=== PATIENT | male | born 1955 | race Caucasian/White ===

== ENCOUNTER 2018-09-08 11:08 | Inpatient (IN) | payer SELFPAY ==
[~2018-09-08 11:08] MED LIST: Iopamidol 370 76% 100 ML VIAL ONE
[2018-09-08 11:21] LABS: #Eosinphils 0.1 thou/uL (0.0-0.7); #Lymphocytes 1.7 thou/uL (1.20-3.40); #Monocytes 0.6 thou/uL (0.11-0.59); #Neutrophils 8.9 thou/uL (1.40-6.50); %Basophils 0.3 % (0.0-1.0); %Eosinophils 1.1 % (0.0-10.0); %Lymphocytes 15.2 % (21.0-51.0); %Monocytes 4.8 % (0.0-10.0); %Neutrophils 78.5 % (42.0-75.0); Mean Corpuscular HGB CONC 33.4 g/dL (32.0-36.0); Mean Corpuscular Hemoglobin 33.7 pg (27.0-31.0); Mean Platelet Volume 8.6 fL (7.4-10.4); Platelet Count 256 thou/uL (130-400); RBC Distribution Width 11.9 % (11.5-14.5); Red Blood Cell (RBC) Count 4.74 mill/uL (4.70-6.10); White Blood Cell (WBC) Count 11.3 thou/uL (4.8-10.8)
[2018-09-08 11:30] LABS: Prothrombin Time 13.2 SEC (12.0-14.7)
--- NOTE | 2018-09-08 11:34 | RAD ---
CHEST 1 VIEW: Date: 09/08/18 HISTORY: STEMI, right-sided. FINDINGS: Costophrenic angles are not completely included on this study; however, the patient was headed to the medical laboratory technicians as an emergency and exam was not repeated. Surgical clips in the left axilla. Heart size is upper range of normal. No confluent pneumonia, overt edema, or pleural effusion. IMPRESSION: Upper range of normal size heart. No significant acute intrathoracic disease. Surgical clips left axi lla. POS: [facility]
[2018-09-08 11:39] LABS: ALT (SGPT) 28 U/L (8-55); AST (SGOT) 17 U/L (5-34); Albumin 4.4 g/dL (3.4-4.8); Alkaline Phosphatase 75 U/L (40-150); Anion Gap 16 mmol/L (10-20); BUN (Urea Nitrogen) 14 mg/dL (8.4-25.7); Bilirubin, Total 0.3 mg/dL (0.2-1.2); Calc. Creatinine Clearance 0 mL/min (70-130); Calcium 10.2 mg/dL (7.8-10.44); Carbon Dioxide 19 mmol/L (23-31); Chloride 109 mmol/L (98-107); Estimated GFR-MDRD 53; Glucose 133 mg/dL (80-115); Potassium 4.6 mmol/L (3.5-5.1); Protein, Total 7.4 g/dL (5.8-8.1); Sodium 139 mmol/L (136-145)
[2018-09-08 11:46] LABS: Cardiac Risk 5.1 (Less than 4.5)
[2018-09-08 11:47] LABS: PTT 169.2 SEC (22.9-36.1)
[2018-09-08] MEDS ORDERED: Morphine 2 MG/ML SYRINGE SLOW IVP PRN (12:33)
[2018-09-08] MEDS ORDERED: Nitroglycerin 0.4 MG TAB (25 Tab Bottle) SL PRN (12:33)
[2018-09-08] MEDS ORDERED: Mag-Al 1200 mg/1200 mg/30 ML UDCUP PO PRN (12:34)
[2018-09-08] MEDS ORDERED: Milk Of Magnesia 30 ML UDCUP PO PRN (12:34)
[2018-09-08] MEDS ORDERED: ALPRAZolam 0.25 MG TAB PO PRN (12:44)
[2018-09-08] MEDS ORDERED: Sodium Chloride 0.9% 1,000 ML IV SCH (12:45)
[2018-09-08] MEDS ORDERED: Aggrastat 12.5 MG/250 ML 250 ML IVPB SCH (12:45)
[2018-09-08 12:50] LABS: CKMB 3.6 ng/mL (0-6.6)
[2018-09-08 13:05] LABS: Hemoglobin A1c 5.2 % (4.0-6.0)
--- NOTE | 2018-09-08 13:18 | CCL ---
CARDIAC CATHETERIZATION REPORT: Date: 09/08/18 PROCEDURE: Coronary arteriography, drug-eluting stent placement in the mid LAD. DESCRIPTION OF PROCEDURE: The patient was brought to the cardiac dye lab technician and the right groin was prepped and draped in the usu al manner. A 6 [place] sheath was placed into the right femoral artery. ACTs were checked and heparin bolus was given to ultimately achieve an ACT of 313. A 6 [place] Elder left-4 diagnostic catheter followed by a 6 [place] Elder right-4 guide catheter w ere used for coronary arteriography. A floppy Choice wire was advanced into the distal right coronary artery. The area was predilated with Emerge 3.0 x 15 mm balloon. Synergy 4.0 x 38 followed by 4.0 x 12 mm stents were placed in the mid right coronary artery. There was RAAD 1-2 flow and Adenosine 200 mg twice was given with improvement to RAAD 3 flow. Patient was hypotensive at the end of the case wi th pressures in the 60s-70s systolic. Patient was given 250 mL of saline bolus followed by Dopamine 5 mcg/kg/minute, which was then increased to 10, and was gradually tapered at the end of the case. She ath was sutured in place. The patient also was placed on Aggrastat, which was continued at the conclu delio of the case. RESULTS: CORONARY ARTERIOGRAPHY: 1. The left main was normal. 2. The LAD had a 20% first diagonal stenosis. 3. The circumflex was normal. 4. The ramus was large with a 70% stenosis. 5. The right coronary artery was totally occluded in its mid portion. The distal vessel filled retro grade from the left. INTERVENTION RESULTS: Initial mid right coronary artery stenosis was 100% and final lesion was 0%. IMPRESSION: 1. Two vessel coronary artery disease (circumflex and RCA). 2. Successful drug-eluting stent placement in the mid right coronary artery.
[2018-09-08 14:15] VITALS: BMI 34.2
--- NOTE | 2018-09-08 18:32 | HP ---
HISTORY OF PRESENT ILLNESS: Timmy Hollingsworth is a 62-year-old white male, who receives most of his care at the [facility]. He denies any previous cardiac problems. He does, at times, have chest pain which he describes as an indigestion. This morning at 7 a.m., he had onset of central chest tightness, associated with shortness of breath, diaphoresis, and nausea. This lasted until he was transferred here, I saw him in the emergency room at 11:15 am. He called the Paramedics to where he lives in [place]. They then called another helicopter service, which then brought him to [place] by air. He states that his pain continues at this time. PAST MEDICAL HISTORY: Hypertension and bipolar disorder. He denies any history of diabetes or hypercholesterolemia. MEDICATIONS: Blood pressure and some type of psychiatric medications. ALLERGIES: NONE. OPERATIONS: Tonsillectomy, back surgery, hernia surgery, right ankle surgery. He also had removal of melanoma from his chest and from the lymph node. He has history of lung cancer, treated with chemotherapy, but he states that he is in remission. SOCIAL HISTORY: He continues to smoke 2 packs per day. He does not drink. FAMILY HISTORY: Mother has had coronary stents placed. REVIEW OF SYSTEMS: A 10-point review of systems is otherwise unremarkable. PHYSICAL EXAMINATION: VITAL SIGNS: Blood pressure 128/72, pulse of 90. HEENT: PERRL. NECK: Supple. CHEST: Clear. CARDIAC: S1 and S2 normal without any S3, S4, or murmurs. ABDOMEN: Obese. Normal bowel sounds. No tenderness or organomegaly. EXTREMITIES: Revealed trace pretibial edema. NEUROLOGIC: Grossly intact. SKIN: Warm and dry. LABORATORY DATA: EKG revealed a 2-mm ST-segment elevation in lead F, 3 mm in lead II, and 4 mm in lead III. Blood work that has now returned, hemoglobin 16.0, hematocrit 47.9, white count 11,300, and platelets 256,000. Sodium 139, potassium 4.6, chloride 109, carbon dioxide 19, BUN 14, creatinine 1.37, and glucose 133. Troponin I 0.073. Cholesterol 169, triglycerides 121, HDL 33, and LDL 112. IMPRESSION: 1. Inferior ST-elevation myocardial infarction. 2. Hypertension. 3. Smoker. 4. Positive family history. 5. Bipolar disorder. 6. Obesity. PLAN: It is recommended that the patient undergo cardiac catheterization. Risks of this were discussed with the patient including , myocardial infarction, dye reaction, vascular injury, CVA, transfusion, limb loss, renal loss, etc. Also, risks of intervention with stent placement were discussed including , myocardial infarction, emergent CABG, restenosis, stent thrombosis, vessel perforation, etc. He does not have any history of gastrointestinal bleeding and has never had a stroke. He is not having surgeries in the near future, and therefore, a drug-eluting stent will be placed. We discussed the need to take medicines for at least a year. With his obesity and voice, TSH will be obtained. Also hemoglobin A1c will be obtained. He will be started on atorvastatin. Job ID: [id number] [facility]TDD
[2018-09-08] MEDS: Atorvastatin Calcium 40 MG TAB PO SCH (20:14)
[2018-09-08 21:03] LABS: Troponin I 61.817 ng/mL (< 0.028)
[2018-09-09 05:38] LABS: #Eosinphils 0.1 thou/uL (0.0-0.7); #Lymphocytes 2.2 thou/uL (1.20-3.40); #Monocytes 0.8 thou/uL (0.11-0.59); #Neutrophils 9.5 thou/uL (1.40-6.50); %Basophils 0.4 % (0.0-1.0); %Eosinophils 0.7 % (0.0-10.0); %Lymphocytes 17.4 % (21.0-51.0); %Monocytes 6.5 % (0.0-10.0); %Neutrophils 75.1 % (42.0-75.0); Hemoglobin 14.8 g/dL (14.0-18.0); Mean Corpuscular HGB CONC 32.6 g/dL (32.0-36.0); Mean Corpuscular Hemoglobin 33.1 pg (27.0-31.0); Mean Platelet Volume 8.7 fL (7.4-10.4); Platelet Count 246 thou/uL (130-400); RBC Distribution Width 11.9 % (11.5-14.5); Red Blood Cell (RBC) Count 4.47 mill/uL (4.70-6.10); White Blood Cell (WBC) Count 12.6 thou/uL (4.8-10.8)
[2018-09-09 05:47] LABS: ALT (SGPT) 37 U/L (8-55); AST (SGOT) 129 U/L (5-34); Albumin 4.1 g/dL (3.4-4.8); Alkaline Phosphatase 66 U/L (40-150); Anion Gap 12 mmol/L (10-20); BUN (Urea Nitrogen) 13 mg/dL (8.4-25.7); Bilirubin, Total 0.5 mg/dL (0.2-1.2); Calc. Creatinine Clearance 100 mL/min (70-130); Calcium 9.7 mg/dL (7.8-10.44); Carbon Dioxide 24 mmol/L (23-31); Chloride 108 mmol/L (98-107); Estimated GFR-MDRD 60; Globulin 2.9 g/dL (2.4-3.5); Glucose 104 mg/dL (80-115); Potassium 4.3 mmol/L (3.5-5.1); Sodium 140 mmol/L (136-145)
[2018-09-09 06:03] LABS: Free T4 (Free Thyroxine) 0.89 ng/dL (0.70-1.48); T4 5.5 ug/dL (4.87-11.72)
[2018-09-09] MEDS: Aspirin Chewable 81 MG TAB PO SCH (08:12)
[2018-09-09] MEDS: Clopidogrel Bisulfate 75 MG TAB PO SCH (08:12)
[2018-09-09 15:17] LABS: Troponin I 20.009 ng/mL (< 0.028)
[2018-09-09] MEDS: Carvedilol 3.125 MG TAB PO SCH (16:47)
[2018-09-09] MEDS: Atorvastatin Calcium 40 MG TAB PO SCH (21:22)
[2018-09-10] MEDS: Clopidogrel Bisulfate 75 MG TAB PO SCH (10:01)
[2018-09-10] MEDS: Carvedilol 3.125 MG TAB PO SCH (10:02)
[2018-09-10] MEDS: Aspirin Chewable 81 MG TAB PO SCH (10:03)
[2018-09-10] MEDS ORDERED: Carvedilol 3.125 MG TAB PO SCH (14:00)
[2018-09-10] MEDS: Carvedilol 6.25 MG TAB PO SCH (17:11)
[2018-09-10] MEDS: Lisinopril 2.5 MG TAB PO SCH (20:42)
[2018-09-10] MEDS: Atorvastatin Calcium 40 MG TAB PO SCH (20:42)
[2018-09-10] MEDS: Mirtazapine 15 MG TAB PO SCH (20:43)
--- NOTE | 2018-09-10 21:16 | EKG ---
Test Reason : Blood Pressure : / mmHG Vent. Rate : 100 BPM Atrial Rate : 100 BPM P-R Int : 174 ms QRS Dur : 094 ms QT Int : 330 ms P-R-T Axes : 070 -04 095 degrees QTc Int : 425 ms Normal sinus rhythm Minimal voltage criteria for LVH, may be normal variant Inferior infarct , age undetermined Abnormal ECG No previous ECGs available Confirmed by Lewis MAHAJAN ([id number]) on 09/10/2018 9:16:21 PM Referred By: KENYATTA Confirmed By:Lewis MAHAJAN
--- NOTE | 2018-09-10 21:25 | EKG ---
Test Reason : Blood Pressure : / mmHG Vent. Rate : 077 BPM Atrial Rate : 077 BPM P-R Int : 172 ms QRS Dur : 094 ms QT Int : 398 ms P-R-T Axes : 073 -33 -46 degrees QTc Int : 450 ms Normal sinus rhythm Left axis deviation Inferior infarct (cited on or before 08-SEP-2018) Abnormal ECG When compared with ECG of 08-SEP-2018 12:46, (Unconfirmed) T wave inversion now evident in Inferior leads Confirmed by Lewis MAHAJAN ([id number]) on 09/10/2018 9:25:05 PM Referred By: KENYTATA Confirmed By:Lewis MAHAJAN
[2018-09-11] MEDS: Ipratropium Bromide 2.5 ml Neb NEB SCH (07:11)
[2018-09-11] MEDS: Clopidogrel Bisulfate 75 MG TAB PO SCH (09:31)
[2018-09-11] MEDS: Carvedilol 6.25 MG TAB PO SCH ×2 (09:31→16:30)
[2018-09-11] MEDS: Aspirin Chewable 81 MG TAB PO SCH (09:31)
[2018-09-11] MEDS: PARoxetine 20 MG TAB PO SCH (09:32)
[2018-09-11] MEDS: Lisinopril 2.5 MG TAB PO SCH ×2 (09:32→20:20)
--- NOTE | 2018-09-11 11:24 | PDOC.CTH ---
Cardiology Progress Note - Objective Vital Signs Temp Pulse Resp BP BP Pulse Ox 09/11/18 09:32 82 146/93 H 09/11/18 09:31 146/93 H 09/11/18 07:43 96 09/11/18 07:20 92 L 09/11/18 07:08 97 16 92 L 09/11/18 04:00 97.6 F 112 H 24 H 173/95 H 95 09/11/18 00:00 97.2 F L 84 15 130/70 96 09/10/18 23:35 90 L Weight 245 lb 09/10/18 09/11/18 09/12/18 06:59 06:59 06:59 Intake Total 1860 2347 240 Output Total 1050 2275 Balance 810 72 240 - Physical Examination General/Neuro: alert & oriented x3, NAD Neck: carotid US brisk, no JVD present Lungs: CTA, unlabored respirations Heart: PMI normal, RRR Abdomen: NT/ND, soft Extremities: + femoral B - Labs Result Diagrams: 09/09/18 04:49 09/09/18 04:49 Troponin/CKMB CK-MB (CK-2) 3.6 ng/mL (0-6.6) 09/08/18 11:13 Troponin I 20.009 ng/mL (< 0.028) H* 09/09/18 14:40 - Assessment/Plan AMI s/p stent Pt doing well On plavix, ASA, BB and statin Pt with low TSH. Check thyroid profile Home tomorrow
[2018-09-11 12:16] LABS: Free Thyroxine Index 2.56 (1.4-3.1); T4 8.9 ug/dL (4.87-11.72)
[2018-09-11] MEDS: Atorvastatin Calcium 40 MG TAB PO SCH (20:20)
[2018-09-11] MEDS: Mirtazapine 15 MG TAB PO SCH (20:20)
[2018-09-12] MEDS: Ipratropium Bromide 2.5 ml Neb NEB SCH (06:24)
[2018-09-12 08:07] VITALS: BP 139/86; TEMP 97.9
[2018-09-12] MEDS: PARoxetine 20 MG TAB PO SCH (08:51)
[2018-09-12] MEDS: Clopidogrel Bisulfate 75 MG TAB PO SCH (08:51)
[2018-09-12] MEDS: Aspirin Chewable 81 MG TAB PO SCH (08:52)
[2018-09-12] MEDS: Carvedilol 6.25 MG TAB PO SCH (08:52)
[2018-09-12] MEDS: Lisinopril 2.5 MG TAB PO SCH (08:52)
== END 2018-09-12 11:10 | disposition home or self-care (01) | DRG 247 ==
LOC: ERS 11:08 → CCU 11:30 → 2SE 09-09 15:49
PROVIDERS: ADMIT Internal Medicine Cardiovascular Disease; ATTEND Internal Medicine Cardiovascular Disease
PROC: 027034Z Dilation of Coronary Artery, One Artery with Drug-eluting Intraluminal Device, Percutaneous Approach (ICD-10-PCS; principal; 2018-09-08)
PROC: 4A023N7 Measurement of Cardiac Sampling and Pressure, Left Heart, Percutaneous Approach (ICD-10-PCS; 2018-09-08)
PROC: B2111ZZ Fluoroscopy of Multiple Coronary Arteries using Low Osmolar Contrast (ICD-10-PCS; 2018-09-08)
DX: I21.4 Non-ST elevation (NSTEMI) myocardial infarction (principal); I25.10 Atherosclerotic heart disease of native coronary artery without angina pectoris; I10 Essential (primary) hypertension; F31.9 Bipolar disorder, unspecified; F17.210 Nicotine dependence, cigarettes, uncomplicated; Z79.899 Other long term (current) drug therapy; Z68.34 Body mass index [BMI] 34.0-34.9, adult
CPT/HCPCS: 36415; 71045; 80053; 80061; 82553; 83036; 84436; 84439; 84443; 84479; 84481; 84484; 85025; 85347; 85610; 85730; 90471; 90732; 92941; 92977; 93005; 93010; 93306; 93798; 94640; C1725; C1769; C1874; C1887; C9606; G0009; J7620; Q9967

== ENCOUNTER 2018-09-22 05:07 | Observation (INO) | payer MEDICARE, OTHER, SELFPAY ==
[2018-09-22] MEDS ORDERED: hydrALAZINE 20 MG/ML VIAL ONE (05:20)
[2018-09-22 06:22] LABS: CKMB 3.1 ng/mL (0-6.6)
--- NOTE | 2018-09-22 07:48 | CT ---
PRELIMINARY REPORT/[facility]/EMERGENCY AFTER HOURS PROCEDURE EXAM: CT Angiography Chest With Contrast EXAM DATE/TIME: 09/22/2018 5:47 AM CLINICAL HISTORY: 62 years old, male; Angina; Patient HX: 62 y/o m, S/P stemi and cardiac stent placement x 10 days ago , presents to ED via transport from [facility] ED for cp. PT describes onset as 1400 x 1 day ago. PT was prompted to call 911 with onset of diaphoresis. He also notes x 1 day of cough. TECHNIQUE: Imaging protocol: Axial computed tomographic angiography images of the chest with intravenous contras t using CT angiography protocol. Coronal and sagittal reformatted images were created and reviewed. 3D rendering: MIP reconstructed images were created and reviewed. COMPARISON: No relevant prior studies available. FINDINGS: Pulmonary arteries: No pulmonary emboli. Aorta: Atherosclerotic changes of the thoracic aorta and branches without aneurysm. Lungs: Emphysematous changes. There are a few nonspecific subcentimeter pulmonary nodules, for exampl e 4 mm in the right upper lung (series 3, image 44). Peripherally calcified 1.9 cm round nodule in th e right lung base. Mild subsegmental bibasilar atelectasis. Pleural space: No pneumothorax or pleural effusion. Heart: The heart is within normal size limits. No abnormal pericardial effusion. Lymph nodes: No mediastinal lymphadenopathy. Bones/joints: No suspicious bone lesions or fracture. Soft tissues: Absence of the left pectoralis muscle. Surgical clips in the left axilla. Nonspecific l eft axillary/left chest approximately 1 cm subcutaneous nodules/lymph nodes. IMPRESSION: 1. No evidence of a pulmonary embolism. 2. Defer to on-site radiologist for followup of pulmonary nodules. Thank you for allowing us to participate in the care of your patient. Dictated and Authenticated by: Yoselin Taylor MD 09/22/2018 6:25 AM Central Time ([place] & [place]) FINAL REPORT CT ANGIOGRAM CHEST WITH 3D RENDERING: EMERGENT AFTER HOURS EXAM 09/22/2018 5:49 a.m. FINDINGS: No convincing CT evidence for acute pulmonary embolism. Bilateral chronic lung changes. Pulmonary n odule measuring 1.9 cm in the right lung base with partially calcified rim with smaller nodules, up t o 0.4 cm. Absent left pectoris muscle. Small left-sided subcutaneous nodules, nonspecific, possibly lymph nodes. Fatty changes in the liver. Somewhat prominent nodular adrenal glands bilaterally, no nspecific. Consider follow-up PET scan with regard to the pulmonary nodule in the right lower lobe. This report is in agreement with the preliminary report. CODE LN POS: OFF
[2018-09-22] MEDS ORDERED: Acetaminophen 325 MG TAB PO PRN (07:52)
[2018-09-22] MEDS ORDERED: Nitroglycerin 0.4 MG TAB (25 Tab Bottle) PO PRN (07:52)
[2018-09-22] MEDS ORDERED: Albuterol Sulfate 1.25 MG/3 ML NEB NEB PRN (07:54)
[2018-09-22] MEDS ORDERED: hydrALAZINE 20 MG/ML VIAL SLOW IVP PRN (08:09)
[2018-09-22 08:38] LABS: #Eosinphils 0.1 thou/uL (0.0-0.7); #Lymphocytes 1.5 thou/uL (1.20-3.40); #Monocytes 0.3 thou/uL (0.11-0.59); #Neutrophils 11.2 thou/uL (1.40-6.50); %Basophils 0.1 % (0.0-1.0); %Eosinophils 0.8 % (0.0-10.0); %Lymphocytes 11.3 % (21.0-51.0); %Monocytes 2.5 % (0.0-10.0); %Neutrophils 85.3 % (42.0-75.0); Hemoglobin 14.5 g/dL (14.0-18.0); Mean Corpuscular HGB CONC 33.1 g/dL (32.0-36.0); Mean Corpuscular Volume 99.7 fL (78.0-98.0); Platelet Count 277 thou/uL (130-400); Red Blood Cell (RBC) Count 4.39 mill/uL (4.70-6.10); White Blood Cell (WBC) Count 13.1 thou/uL (4.8-10.8)
[2018-09-22 08:56] LABS: Anion Gap 13 mmol/L (10-20); BUN (Urea Nitrogen) 15 mg/dL (8.4-25.7); Calc. Creatinine Clearance 0 mL/min (70-130); Calcium 9.7 mg/dL (7.8-10.44); Carbon Dioxide 23 mmol/L (23-31); Chloride 107 mmol/L (98-107); Estimated GFR-MDRD 56; Glucose 142 mg/dL (80-115); Sodium 139 mmol/L (136-145)
--- NOTE | 2018-09-22 08:57 | HP ---
PRIMARY CARE PROVIDER: MAY. CHIEF COMPLAINT: Chest pressure. HISTORY OF PRESENT ILLNESS: This is a 62-year-old male with recent STEMI and stent placement on 09/08/2018 and discharged from this hospital, history of lung cancer in remission, dyslipidemia, hypertension, bipolar disorder, who presents to the emergency room in [place] with a complaint of chest pressure. The patient reports around 02:00 p.m. yesterday the onset of pressure that he describes at the center of his chest with associated shortness of breath. He reports that it happened soon after smoking a cigarette. He denies any precipitating factors, states it was worse with walking around, denies any relieving factors, and states it was worse with laying down. He denies any radiation, nausea, or vomiting, and reports that this is different than when he had his STEMI. He rates the pressure as a 3 or 4/10 and states it lasted several hours. It has since resolved since his transfer to this facility. Yesterday, he reports his [id number] checked his blood pressure at home, states that it was high. He does not specifically know the numbers, states he has been taking all of his medication, and reports he has not missed any doses of his aspirin and Plavix. He denies any symptoms at this time, only complains of fatigue currently, and he has been in our emergency room overnight. In the emergency room here, the patient received hydralazine 10 mg IV, the highest blood pressure recorded is 193/130. In [facility], he received aspirin 324 mg, 1-inch of nitroglycerin paste, labetalol 10 mg IV, and transferred to this facility. PAST MEDICAL HISTORY: 1. Coronary artery disease with stent placement on 09/08/2018 at this facility. 2. Hypertension. 3. Dyslipidemia. 4. Bipolar disorder. 5. History of lung cancer, status post chemotherapy. PAST SURGICAL HISTORY: 1. Tonsillectomy. 2. Back surgery. 3. Hernia surgery. 4. Right ankle surgery. 5. Melanoma removal. 6. Cardiac stent placement. SOCIAL HISTORY: The patient lives alone in [place], continues to use tobacco, denies any alcohol. His surrogate decision maker is his [id number], [place], and he is a full code. FAMILY HISTORY: Significant for a mother who had coronary stents. REVIEW OF SYSTEMS: Negative for any vision changes, headache, current chest pain, nausea, vomiting, or abdominal pain, urinary changes. All remaining review of systems are reviewed and negative. CURRENT MEDICATIONS: The patient reports there have been no changes since his last discharge from this facility and they are, 1. Aspirin 81 mg daily. 2. Atorvastatin 40 mg at bedtime. 3. Carvedilol 6.25 mg b.i.d. 4. Plavix 75 mg daily. 5. Lisinopril 2.5 mg b.i.d. 6. Paxil 40 mg daily. 7. Mirtazapine 45 mg at bedtime. 8. [place] 300 mg tablets twice daily. 9. Spiriva 2.5 mcg daily. 10. Albuterol inhaler and nebulizer every 4 hours as needed. PHYSICAL EXAMINATION: VITAL SIGNS: His blood pressure here 139/88, pulse 82, respirations 19, temperature 98.4, sats 96% on 2 L oxygen. GENERAL: The patient is awake, alert, responsive, in no apparent distress. Able to speak in full sentences. HEENT: His tympanic membranes are translucent. Oral mucosa is pink and dry. NECK: Supple and nontender. LYMPHATICS: No palpable cervical or supraclavicular lymphadenopathy. LUNGS: Clear to auscultation bilaterally with good air movement. HEART: Normal S1, S2. Regular rate and rhythm. No audible murmurs. ABDOMEN: Soft with present bowel sounds. Nontender. Nondistended. EXTREMITIES: No clubbing, cyanosis, or edema. SKIN: The patient has multiple areas of crusting on his lower extremities that he reports is consistent with minor trauma. VASCULAR: 2+ dorsalis pedis pulses. NEURO: No focal deficits. PSYCH: Appears euthymic. Alert and oriented x4. LABORATORY DATA: Reviewed from [place], his BNP is 469. Renal panel 142, 4.0, 109, 20, 17, 1.25 with a glucose of 109. LFTs are normal. Lipase is 66. Troponin 0.03. CBC 14.1, 14.1, 42, 296. Chest x-ray report in [place] is negative. EKG here personally reviewed, sinus rhythm, left axis deviation, abnormal R-wave progression with an inferior infarct consistent with his STEMI here two weeks ago. CT angiogram performed here shows no evidence for acute PE, bilateral chronic lung changes with a pulmonary nodule 1.9 cm in the right lung base with a calcified rim and smaller nodules, fatty changes in the liver. Consider followup PET scan. Troponin here 0.046. IMPRESSION: 1. Unstable angina in a patient with recent stent placement, hypertension, ongoing tobacco abuse. 2. Hypertension, uncontrolled. 3. Likely Chronic kidney disease based on chart review. 4. Pulmonary nodule, measuring 1.9 cm. Needs follow up in the outpatient setting. 5. Dyslipidemia. 6. History of lung cancer. 7. Bipolar disorder, unknown control. 8. Tobacco abuse. PLAN: 1. Observation status in the hospital. 2. Echocardiogram and Cardiology consultation. 3. We will trend troponins. 4. Continuing all of his cardiac medications from his last discharge, which include a beta rosa, statin, dual anti-platelet therapy, and RAUL inhibitor. We will use hydralazine as needed. 5. Continuing his home mood medications - will use the lithium dosing from his last inpatient visit of 300 mg BID, monitor renal function. 6. P.r.n. albuterol and schedule daily Spiriva. 7. Will need outpatient followup on the lung nodule. 8. Monitoring on telemetry. 9. The patient does not have overt signs of pulmonary edema on physical exam, no clear indication for Lasix even with the elevated BNP. We will monitor this. 10. DVT prophylaxis with pneumatic compression devices. 11. GI prophylaxis, not indicated. 12. Code status is full. Surrogate decision maker is above. 13. The patient is at high risk given age, comorbidities, and current presentation. 14. Reviewed the plan of care with the patient, who demonstrates understanding. No questions or further needs at end of evaluation. Job ID: [id number] [facility]
[2018-09-22 09:00] LABS: Troponin I 0.035 ng/mL (< 0.028)
[2018-09-22] MEDS ORDERED: Lisinopril 2.5 MG TAB PO SCH (09:00)
[2018-09-22] MEDS ORDERED: ISOVUE-370 76%-LOCM 1 ML ONE (09:45)
[2018-09-22] MEDS ORDERED: Clopidogrel Bisulfate 75 MG TAB ONE (12:01)
[2018-09-22] MEDS: Ipratropium Bromide 2.5 ml Neb NEB SCH ×2 (14:23→18:16)
[2018-09-22 15:13] VITALS: BMI 33.2
[2018-09-22] MEDS: Carvedilol 6.25 MG TAB PO SCH ×2 (16:29→17:29)
[2018-09-22] MEDS: Aspirin 81 mg Enteric Coated Tablet PO SCH (16:30)
[2018-09-22] MEDS: Clopidogrel Bisulfate 75 MG TAB PO SCH (16:30)
[2018-09-22] MEDS: PARoxetine 20 MG TAB PO SCH (16:30)
--- NOTE | 2018-09-22 20:48 | PDOC.EVN ---
Event Note - Event Note Event Note: reviewed pt's bp's from today and elevated in the 160's - will increase the lisinopril to 5 mg BID. Recheck renal function in the morning. Also reviewed orders and do not see a cardiology consult placed in the system - will order one for tomorrow with Dr. Stevenson - the [facility].
[2018-09-22] MEDS ORDERED: Mirtazapine 15 MG Soltab PO SCH (21:00)
[2018-09-22] MEDS ORDERED: Atorvastatin Calcium 40 MG TAB PO SCH (21:00)
[2018-09-22] MEDS: Lisinopril 5 MG TAB PO SCH (21:01)
[2018-09-23] MEDS: Ipratropium Bromide 2.5 ml Neb NEB SCH ×2 (00:07→07:20)
[2018-09-23 08:08] LABS: #Eosinphils 0.3 thou/uL (0.0-0.7); #Lymphocytes 1.9 thou/uL (1.20-3.40); #Monocytes 0.6 thou/uL (0.11-0.59); #Neutrophils 9.8 thou/uL (1.40-6.50); %Basophils 0.4 % (0.0-1.0); %Eosinophils 2.2 % (0.0-10.0); %Lymphocytes 14.8 % (21.0-51.0); %Monocytes 4.6 % (0.0-10.0); %Neutrophils 78.1 % (42.0-75.0); Hemoglobin 14.9 g/dL (14.0-18.0); Mean Corpuscular HGB CONC 32.4 g/dL (32.0-36.0); Mean Corpuscular Hemoglobin 32.7 pg (27.0-31.0); Platelet Count 284 thou/uL (130-400); RBC Distribution Width 12.2 % (11.5-14.5); Red Blood Cell (RBC) Count 4.57 mill/uL (4.70-6.10); White Blood Cell (WBC) Count 12.5 thou/uL (4.8-10.8)
[2018-09-23 08:39] VITALS: TEMP 97.7
--- NOTE | 2018-09-23 08:52 | CON ---
DATE OF CONSULTATION: HISTORY: Timmy Hollingsworth is a 62-year-old white male who receives most of his care at the [facility] He presented on September 08, 2018, with chest discomfort. He denied any previous cardiac problems. On the morning of admission at 7 a.m., he had central chest tightness associated with shortness of breath, diaphoresis, and nausea. This lasted until he was transferred here to the emergency room when I saw him at 11:15 a.m. He had called paramedics to where he lives in [place]. They called another helicopter service which then brought him to [place] by air. He was taken to the [facility] emergently. He was found have a 20% circumflex stenosis. The ramus had 70% stenosis and was a large vessel. Right coronary artery was totally occluded in its midportion with the distal vessel filling retrograde from the left. This was pre-dilated and then a Synergy drug-eluting stent 4.0 x 38 mm, followed by 4.0 x 12 mm stents were placed in the mid right coronary artery. At the conclusion, his pressure was in the 60-70 systolic range. He was given a 250 mL bolus of saline followed by dopamine, his pressure stabilized. He was placed on Aggrastat for 24 hours. Today, he had onset of approximately 2-3 hours of continual lower chest discomfort that was somewhat pleuritic in nature. The pain resolved and at the present time, he is pain free. There were no acute changes on his EKG only showing the previous inferior infarction. PAST MEDICAL HISTORY: Hypertension, hypercholesterolemia, and bipolar disorder. MEDICATIONS: 1. Albuterol nebs q.4 hours p.r.n. 2. Aspirin 81 mg daily. 3. Atorvastatin 40 at bedtime. 4. Carvedilol 6.25 b.i.d. 5. Plavix 75 daily. 6. Lisinopril 2.5 mg b.i.d. 7. [place] 300 mg b.i.d. 8. Mirtazepine 45 at bedtime. 9. Paxil 40 mg daily. 10. Spiriva 1 puff daily. ALLERGIES: NONE. SOCIAL HISTORY: He smoked 2 packs per day prior to his infarction. He continues to smoke at the present time. He does not drink. FAMILY HISTORY: Mother had coronary stents placed. REVIEW OF SYSTEMS: A 10-point review of systems is otherwise unremarkable. PHYSICAL EXAMINATION: VITAL SIGNS: Blood pressure 112/61, pulse of 74. HEENT: PERRL. NECK: Supple. CHEST: Clear. CARDIAC: S1 and S2 normal without any S3, S4, murmurs. Carotid upstrokes normal. No bruits. ABDOMEN: Normal bowel sounds. EXTREMITIES: Revealed no clubbing, cyanosis, or edema. NEUROLOGIC: Grossly intact. SKIN: Warm and dry. LABORATORY DATA: EKG shows inferior infarction without any significant ST- segment changes. Hemoglobin 14.5, hematocrit 43.8, white count 13,100, platelet count 277,000. Sodium 139, potassium 4, chloride 107, carbon dioxide 23, BUN 15, creatinine 1.31, troponin I was 0.046. IMPRESSION: 1. Probable non-cardiac chest pain. He has no evidence of acute stent thrombosis. He has no significant ST segment elevation, his chest pain has resolved, and he does not have any significant troponin I elevation. 2. Inferior ST-segment elevation myocardial infarction with drug-eluting stent placed in the mid right coronary artery on September 08, 2018. 3. Two-vessel coronary artery disease ([place] and RCA). 4. Smoker. 5. Hypercholesterolemia. 6. Hypertension. 7. Positive family history. 8. Bipolar disorder. 10. History of melanoma. 11. History of lung cancer, s/p chemotherapy. PLAN: The patient's pain does not appear to be cardiac in nature. We will start on Protonix 40 b.i.d. and probably needs to continue this daily at 40 mg once discharged. If he is not having recurrence of chest discomfort, then actually he may be discharged tomorrow. Job ID: [id number] [facility]
[2018-09-23 09:05] LABS: Anion Gap 15 mmol/L (10-20); BUN (Urea Nitrogen) 17 mg/dL (8.4-25.7); Calc. Creatinine Clearance 89 mL/min (70-130); Calcium 9.7 mg/dL (7.8-10.44); Carbon Dioxide 20 mmol/L (23-31); Chloride 109 mmol/L (98-107); Estimated GFR-MDRD 55; Glucose 97 mg/dL (80-115); Potassium 4.6 mmol/L (3.5-5.1); Sodium 139 mmol/L (136-145)
[2018-09-23] MEDS: Carvedilol 6.25 MG TAB PO SCH (09:41)
[2018-09-23] MEDS: PARoxetine 20 MG TAB PO SCH (09:41)
[2018-09-23] MEDS: Aspirin 81 mg Enteric Coated Tablet PO SCH (09:41)
[2018-09-23] MEDS: Clopidogrel Bisulfate 75 MG TAB PO SCH (09:41)
[2018-09-23] MEDS: Lisinopril 5 MG TAB PO SCH (09:41)
[2018-09-23 12:20] VITALS: BP 142/75
--- NOTE | 2018-09-23 17:58 | DIS ---
DATE OF ADMISSION: 09/22/2018 DATE OF DISCHARGE: 09/23/2018 VEST FRONT PRESSER: Dr. Stevenson of Cardiology. MEDICATIONS: Medications are reconciled at discharge. New medication: Pantoprazole 40 mg daily. Prescription provided for 30 days, no refills. To be refilled by the primary care provider. Changed medication: Lisinopril was increased to 5 mg p.o. b.i.d. Prescription provided for 30 days, refills from the primary care provider. Discontinued medication: Lisinopril 2.5 mg b.i.d. Resumed medications: 1. Albuterol nebulizer every 4 hours as needed for shortness of breath. 2. Albuterol (ProAir) 2 puffs every 4 hours as needed for shortness of breath. 3. Aspirin 81 mg daily. 4. Lipitor 40 mg at bedtime. 5. Carvedilol 6.25 mg b.i.d. with meals. 6. Plavix 75 mg daily. 7. [place] 300 mg b.i.d. 8. Mirtazapine 45 mg at bedtime. 9. Paxil 40 mg daily. 10. Spiriva 1 inhalation daily. FOLLOWUP: Followup is with Dr. Brown, the primary care provider within a week for re-evaluation of this hospitalization, recheck blood pressure, and adjust medications as needed. Follow up with Dr. Stevenson on November 26, at 9 a.m., as scheduled. FINAL DIAGNOSES: 1. Chest pain, negative cardiac evaluation here. 2. Coronary artery disease with recent ST-elevation myocardial infarction and stent placement on September 08. 3. Hypertension, not optimally controlled. 4. Leukocytosis, mild with left shift, consistent with his prior hospitalization. 5. Pulmonary nodule measuring 1.9 cm in the right lung base, needs followup evaluation. SECONDARY DIAGNOSES: 1. Dyslipidemia. 2. Chronic kidney disease. 3. Bipolar disorder. 4. History of lung cancer, status post resection. 5. Ongoing tobacco abuse. HISTORY OF PRESENT ILLNESS: Mr. Hollingsworth is a 62-year-old male with the above medical problems, who presented to [facility] with a complaint of chest pressure and shortness of breath. Given that he had a recent STEMI 2 weeks ago with stent placement, he was transferred to our facility for evaluation. On arrival to our hospital, the patient was pain free and has remained pain free throughout. He was monitored on telemetry and maintained a sinus rhythm with a rate in the 60s and 70s. He underwent echocardiogram, which shows a normal ejection fraction. He was evaluated by Dr. Stevenson of Cardiology, and this was not felt to be cardiac in origin even with the indeterminate troponins. Instead, the patient does report acid reflux and indigestion at least every other day, and the patient was started on pantoprazole for this. The patient's kidney function has remained stable with a creatinine of 1.31 and 1.32 while here consistent with his prior admission. Recommend followup with Dr. Brown in the outpatient setting for monitoring of this. The patient's blood pressure has been in the 140s to 160s systolic. I kept him on his same carvedilol dose and increased slightly his lisinopril dose for optimal control. This also should be re-evaluated in the outpatient setting. The patient overall is feeling well. He does meet criteria for discharge to home. PHYSICAL EXAMINATION: VITAL SIGNS: Blood pressure 159/84, temperature 97.7, pulse 73, respirations 20 , saturation 95% on room air. GENERAL: Awake, alert, responsive, in no apparent distress. Able to speak in full sentences. LUNGS: Clear to auscultation bilaterally. HEART: Normal S1 and S2. Regular rate and rhythm. No audible murmurs. ABDOMEN: Soft with present bowel sounds. EXTREMITIES: No edema. FALCON FINDINGS AND TEST RESULTS: CBC here; white blood cell count 12.5, hemoglobin 14.9, hematocrit 46, platelets 284 with 78% neutrophils, 14% lymphocytes. Renal panel; sodium 139, potassium 4.6, chloride 109, bicarbonate 20, BUN 17, creatinine 1.32, glucose 97. Troponins were 0.046, 0.035, 0.030. Echocardiogram shows an ejection fraction of 60% to 65%, left atrium mildly dilated, moderate mitral regurgitation, mild tricuspid regurgitation, and aortic valve sclerotic. CT angiogram performed here negative for PE, bilateral chronic lung changes, pulmonary nodule measuring 1.9 cm in the right lung base with partially calcified rim. Consider followup PET scan. DIET: Heart-healthy. Tobacco cessation encouraged. ACTIVITY: As tolerated. Reviewed with the patient this hospitalization, the changes of his medications, the importance of followup, and the seek care precautions. He demonstrates understanding. TIME SPENT: Total time coordinating discharge is 30 minutes. Job ID: [id number] [facility]
--- NOTE | 2018-09-24 12:10 | EKG ---
Test Reason : Blood Pressure : / mmHG Vent. Rate : 069 BPM Atrial Rate : 069 BPM P-R Int : 180 ms QRS Dur : 086 ms QT Int : 418 ms P-R-T Axes : 060 -30 061 degrees QTc Int : 447 ms Normal sinus rhythm Left axis deviation Left ventricular hypertrophy with repolarization abnormality Inferior infarct , age undetermined Abnormal ECG Confirmed by DARLEEN YOON DO ([id number]), purchase request editor TJ MARTINEZ ([id number]) on 09/24/2018 12:10:45 PM Referred By: Confirmed By:DARLEEN YOON DO
== END 2018-09-23 13:00 | disposition home or self-care (01) ==
LOC: ERS 05:07 → ERHOLD 05:52 → 2SW 14:45
PROVIDERS: ADMIT Hospitalist; ATTEND Hospitalist
DX: R07.89 Other chest pain (principal); R06.02 Shortness of breath; I25.110 Atherosclerotic heart disease of native coronary artery with unstable angina pectoris; I21.3 ST elevation (STEMI) myocardial infarction of unspecified site; I12.9 Hypertensive chronic kidney disease with stage 1 through stage 4 chronic kidney disease, or unspecified chronic kidney disease; N18.9 Chronic kidney disease, unspecified; D72.829 Elevated white blood cell count, unspecified; E78.5 Hyperlipidemia, unspecified; F31.9 Bipolar disorder, unspecified; F17.210 Nicotine dependence, cigarettes, uncomplicated; F17.290 Nicotine dependence, other tobacco product, uncomplicated; R91.1 Solitary pulmonary nodule; Z79.82 Long term (current) use of aspirin; Z79.899 Other long term (current) drug therapy
CPT/HCPCS: 36415; 71275; 80048; 82553; 84484; 85025; 93005; 93306; 94640; 94760; 96374; G0378; J0360

== ENCOUNTER 2018-10-06 23:28 | Observation (INO) | payer MEDICARE, OTHER ==
[2018-10-07 01:03] LABS: CKMB 2.3 ng/mL (0-6.6)
[2018-10-07 03:34] LABS: Troponin I 0.037 ng/mL (< 0.028)
[2018-10-07] MEDS ORDERED: Ondansetron PF 4 MG/2 ML Vial IVP PRN ×2 (06:23→11:29)
[2018-10-07] MEDS ORDERED: Acetaminophen 325 MG TAB PO PRN (06:23)
[2018-10-07] MEDS ORDERED: Ondansetron ODT 4 MG TAB SL PRN (06:23)
[2018-10-07] MEDS ORDERED: Acetaminophen 325 MG TAB ONE (06:28)
[2018-10-07 07:06] LABS: Troponin I 0.034 ng/mL (< 0.028)
[2018-10-07] MEDS ORDERED: Acetaminophen 650 MG Suppository PR PRN (11:29)
[2018-10-07] MEDS ORDERED: Ondansetron ODT 4 MG TAB PO PRN (11:29)
[2018-10-07] MEDS ORDERED: Bisacodyl 10 MG SUPP PR PRN (11:29)
[2018-10-07] MEDS ORDERED: Sodium Chloride 0.9% 1,000 ML IV SCH (11:30)
[2018-10-07] MEDS ORDERED: hydrALAZINE 20 MG/ML VIAL SLOW IVP PRN (12:12)
[2018-10-07] MEDS ORDERED: Lorazepam 0.5 MG TAB PO SCH (12:30)
[2018-10-07 13:01] LABS: #Eosinphils 0.1 thou/uL (0.0-0.7); #Lymphocytes 1.7 thou/uL (1.20-3.40); #Monocytes 0.5 thou/uL (0.11-0.59); #Neutrophils 9.3 thou/uL (1.40-6.50); %Basophils 0.2 % (0.0-1.0); %Lymphocytes 14.9 % (21.0-51.0); %Monocytes 4.2 % (0.0-10.0); %Neutrophils 79.7 % (42.0-75.0); Hemoglobin 14.5 g/dL (14.0-18.0); Mean Corpuscular HGB CONC 32.4 g/dL (32.0-36.0); Mean Platelet Volume 8.4 fL (7.4-10.4); Platelet Count 237 thou/uL (130-400); RBC Distribution Width 12.1 % (11.5-14.5); Red Blood Cell (RBC) Count 4.39 mill/uL (4.70-6.10); White Blood Cell (WBC) Count 11.6 thou/uL (4.8-10.8)
--- NOTE | 2018-10-07 13:08 | HP ---
CHIEF COMPLAINT: Epigastric pain. HISTORY OF PRESENT ILLNESS: Mr. Timmy Hollingsworth is a 62-year-old man who presents complaining of increasing shortness of breath and epigastric pain for the last 2 days. He states yesterday afternoon around 2:00 p.m. he began experiencing pain below the right shoulder blade as well as epigastric discomfort and chest tightness. The patient states he feels it is difficult to take a deep breath due to tightness, but his pain is in the epigastric region and he is sore diffusely throughout his abdomen. He reports having a bowel movement yesterday and noting that he was constipated. He denies any fevers or sweats. No cough or hemoptysis. The patient phoned for an ambulance and per EMS had a systolic pressure in the 200s. He was taken to [facility] where he was noted to have a blood pressure of 163/129. He was put on Nitro-Bid and given Tylenol as well as morphine for his pain. The patient had laboratory studies done notable for white count of 12.3 and D-dimer of 1.03 and BNP of 258. He underwent a CT angiogram that showed no evidence of PE, however, was noted to have a 1.5 cm right lower lobe pulmonary nodule. Given the recent STEMI, the patient had early August 2018, the patient was transferred here for ACS workup. The patient had a troponin that was done there and troponin was 0.04. Troponin's repeated here have been indeterminate at 0.037 and the last one at 6:30 a.m. this morning at 0.034. Of note, at [facility], he also underwent additional investigations including LFTs which were unremarkable. Renal function was also normal. Since arriving to our ER, he has undergone no further investigations. The patient continues to experience diffuse abdominal soreness with discomfort in the epigastric region, but his main pain is in the right shoulder blade region which is not worse with any movement or to touch. He denies any trauma or injuries. No strenuous activity. The pain is currently 8/10, described as an aching and nonradiating. PAST MEDICAL HISTORY: 1. STEMI in August 2018. 2. Coronary artery disease. 3. Hypertension. 4. Dyslipidemia. 5. Bipolar disorder. 6. History of lung cancer, status post chemotherapy. PAST SURGICAL HISTORY: 1. Status post cardiac stent placement September 08, 2018. 2. Melanoma removal. 3. Right ankle surgery. 4. Hernia surgery. 5. Back surgery. 6. Tonsillectomy. SOCIAL HISTORY: The patient reports smoking previously two packs per day for 40 years, but quit after the STEMI in August 2018. Denies any alcohol consumption and denies any illicit drug use. FAMILY HISTORY: His mother had coronary artery disease requiring coronary stents. ALLERGIES: NO KNOWN DRUG ALLERGIES. CURRENT MEDICATIONS: 1. Albuterol. 2. [place]. 3. Mirtazapine. 4. Paroxetine. 5. Spiriva. 6. Aspirin. 7. Atorvastatin. 8. Carvedilol. 9. Clopidogrel. 10. Lisinopril. 11. Protonix. PHYSICAL EXAMINATION: VITAL SIGNS: Temperature 98, pulse 80, respirations 21, O2 saturation 96% on 2 L, blood pressure 181/116. HEENT: Normocephalic and atraumatic. Pupils are equal, round, and reactive to light. Extraocular movements normal. Sclerae without icterus. Oropharynx is clear. Lips dry. NECK: Supple with full range of motion. LUNGS: With decreased breath sounds at the bilateral bases. CARDIAC: Regular rate and rhythm. ABDOMEN: Soft. Obese. Diffuse soreness with palpation with tenderness in the epigastric region. No guarding or rigidity. No renal angle tenderness. MUSCULOSKELETAL: Extremities without lower limb edema or swelling. Right shoulder blade without any tenderness on palpation. No bone deformity or skin changes surrounding it. NEUROLOGIC: Alert and oriented x3, patient with notable resting tremor in his hands, states this is longstanding for him. SKIN: Notable for a raised lesion measuring approximately 4 cm on the dorsum of the left foot which patient states is a birthmark he has had since he was child. A smaller, approximately 1 cm raised and hyperpigmented nodular lesion on the plantar surface of the left big toe which patient states is also a birthmark. No jaundice or rash. LABORATORY DATA: Investigations as mentioned above at [facility]. IMPRESSION AND PLAN: Mr. Hollingsworth is a 62-year-old man who is being referred for management of the following. 1. Acute coronary syndrome rule out. The patient states he has been experiencing increasing shortness of breath and chest tightness for the past two days, but developed significant epigastric discomfort radiating to the right shoulder blade yesterday. Given recent STEMI, requiring stent placement, the patient has had troponin's trended, which are indeterminate. We will add a fourth troponin. We will also repeat EKG to check for any dynamic changes. LFTs were unremarkable. We will repeat today. His BNP was elevated in the 200s and I will discuss with Dr. Martin if repeating echocardiogram would be indicated in the setting; however, no signs of fluid overload on examination and no evidence of effusions on CT angiogram. Cardiology consult will be requested. We will obtain an abdominal ultrasound to rule out any intraabdominal pathology that could be causing his pain. Further imaging as per discussion with Dr. Martin. 2. Hypertension. We will resume home medications once verified. We will give p.r.n. hydralazine. 3. Chronic obstructive pulmonary disease. The patient with known heavy smoking history and chronic obstructive pulmonary disease. We will resume his inhalers once verified and will continue scheduled DuoNeb. We will need followup of lung nodule as per Fleischner guidelines. Continue to monitor O2 saturations. 4. Resting tremor. The patient states this has been longstanding for the last several months up to a year. Denies any history of heavy alcohol consumption currently or in the past. We will check alcohol level as well as urine drug screen. We will give Ativan until results are back. We will also check for any possible source of infection such as UA. 5. Constipation. We will start patient on stool softeners. Could be a culprit of his abdominal discomfort. We will also give gentle hydration. 6. GI prophylaxis. 7. Deep venous thrombosis prophylaxis with mechanical SCDs. 8. Code status full. His surrogate decision maker is his sister, Liana Hollingsworth. The patient's case to be discussed with Dr. Martin for further recommendations. Job ID: [id number]
[2018-10-07 13:28] LABS: ALT (SGPT) 19 U/L (8-55); AST (SGOT) 14 U/L (5-34); Albumin 4.3 g/dL (3.4-4.8); Alcohol Less than 10 mg/dL (Less than 10); Alkaline Phosphatase 94 U/L (40-150); Anion Gap 12 mmol/L (10-20); BUN (Urea Nitrogen) 17 mg/dL (8.4-25.7); Bilirubin, Total 0.4 mg/dL (0.2-1.2); Calc. Creatinine Clearance 0 mL/min (70-130); Calcium 10.3 mg/dL (7.8-10.44); Carbon Dioxide 28 mmol/L (23-31); Chloride 106 mmol/L (98-107); Estimated GFR-MDRD 50; Glucose 100 mg/dL (80-115); Lipase 30 U/L (8-78); Magnesium 2.2 mg/dL (1.6-2.6); Potassium 4.8 mmol/L (3.5-5.1); Protein, Total 7.3 g/dL (5.8-8.1); Sodium 141 mmol/L (136-145)
[2018-10-07 13:48] VITALS: BMI 33.4
[2018-10-07 15:07] LABS: Bilirubin Negative (Negative); Blood, Urine Negative (Negative); Clarity Clear (Clear); Glucose, Urine (Dipstick) Normal (Negative); Leukocyte Negative Leu/uL (Negative); Nitrite Negative (Negative); Protein, Urine (Dipstick) Negative (Neg-Trace); Urobilinogen Normal mg/dL (Less than 2)
[2018-10-07 15:15] LABS: Amphetamine Not Detected (NotDetected); Barbiturates Screen Not Detected (NotDetected); Benzodiazepine Screen Not Detected (NotDetected); Cocaine Metabolite Screen Not Detected (NotDetected); Medtox Control Line Valid? VALID (VALID); Medtox Reader # READER 1; Methadone Not Detected (NotDetected); Methamphetamine Not Detected (NotDetected); Opiate Screen Detected (NotDetected); Oxycodone Screen Not Detected (NotDetected); Phencyclidine (PCP) Not Detected (NotDetected); THC/Cannabinoid Screen Detected (NotDetected); Tricyclic Screen Not Detected (NotDetected)
[2018-10-07 15:18] LABS: Bacteria/HPF None Seen HPF (None Seen); RBC/HPF None Seen HPF (0-3); Squamous Epithelial 0-3 HPF (0-3); Urine Culture Reflex No No; WBC/HPF 0-3 HPF (0-3)
--- NOTE | 2018-10-07 16:20 | RAD ---
CHEST TWO VIEWS: HISTORY: Chest tightness and shortness of breath. COMPARISON: 09/08/2018 FINDINGS: Two views of the chest show normal sized cardiomediastinal silhouette. There is no evidence of consol idation, mass, or pleural effusion. Degenerative changes are seen in the spine. Surgical clips are seen in the left axilla. IMPRESSION: No evidence of acute cardiopulmonary disease. POS: [facility]
--- NOTE | 2018-10-07 16:23 | EKG ---
Test Reason : Blood Pressure : / mmHG Vent. Rate : 078 BPM Atrial Rate : 078 BPM P-R Int : 170 ms QRS Dur : 096 ms QT Int : 408 ms P-R-T Axes : 049 -31 051 degrees QTc Int : 465 ms Normal sinus rhythm Left axis deviation Left ventricular hypertrophy with repolarization abnormality Inferior infarct , age undetermined Abnormal ECG Confirmed by ASHWINI SZYMANSKI ([id number]) on 10/07/2018 4:22:46 PM Referred By: MICHELLE Confirmed By:ASHWINI SZYMANSKI
--- NOTE | 2018-10-07 16:49 | ULT ---
ABDOMINAL ULTRASOUND: HISTORY: Abdominal pain. FINDINGS: The gallbladder has a normal sonographic appearance. No evidence of gallstones. The common duct is not identified on this study. No evidence of intrahepatic ductal dilatation. The aorta and the IVC are not identified on this exam. The liver is echogenic, consistent with fatty infiltration. The spleen is upper normal in size and a ppears unremarkable. The pancreas is unremarkable as visualized. There is a left renal cyst, measuring 1.5 cm. Both kidneys are imaged and otherwise appear unremarka ble. IMPRESSION: Limited examination due to body habitus. The common bile duct is not identified. No evidence of gal lstones. There is evidence of fatty infiltration of the liver and small left renal cysts. POS: [facility]
--- NOTE | 2018-10-07 17:33 | CON ---
DATE OF CONSULTATION: 10/07/2018 REASON FOR CONSULTATION: Chest pain. PRIMARY POCKETBOOK MAKER: Erick Stevenson MD. HISTORY OF PRESENT ILLNESS: Mr. Hollingsworth is a 62-year-old white gentleman, who comes to the hospital for right shoulder pain. He states that he started having right shoulder pain and he checked his blood pressure and it was in the 200s so he decided to come in for evaluation. Looking at the notes, he gave us a history prior of epigastric discomfort and chest tightness. However, when I ask him, he does not give me that history. Either way, he has been ruled out with negative troponins and negative EKG. He had an inferior ST-elevation PA about a month ago. He was treated with drug-eluting stents to his RCA. He has been taking all of his medications without missing. Currently, he is pain free and asking to see if he can go home. He states that the one thing that made his blood pressure better was just controlling his pain level and actually his blood pressures ranged anywhere from 110s to 140s here in the hospital. PAST MEDICAL HISTORY: 1. Coronary artery disease, status post drug-eluting stent to the RCA in the setting of an acute PA. 2. Hypertension. 3. Hyperlipidemia. 4. Bipolar disorder. 5. History of lung cancer, status post chemotherapy. SURGICAL HISTORY: 1. Stenting as above. 2. Melanoma removal. 3. Right ankle surgery. 4. Hernia repair. 5. Back surgery. 6. Tonsillectomy. SOCIAL HISTORY: Two packs a day for 40 years, quit after his PA in August. Positive UDS for marijuana. Denies alcohol use. No drug use. FAMILY HISTORY: Mother with coronary artery disease, unknown age. He does not remember. ALLERGIES: NO KNOWN DRUG ALLERGIES. OUTPATIENT MEDICATIONS: Include; 1. Albuterol. 2. [place]. 3. Mirtazapine. 4. Paroxetine. 5. Spiriva. 6. Aspirin. 7. Atorvastatin. 8. Carvedilol. 9. Plavix. 10. Lisinopril. 11. Protonix. REVIEW OF SYSTEMS: A 12-point review of systems was done and was all negative unless stated in the history of present illness. PHYSICAL EXAMINATION: VITAL SIGNS: Temperature 98.1, pulse 66, respiratory rate 14, sat 97% on room air, blood pressure 175/92, but has been as low as 143/98. GENERAL: Awake, alert, oriented x3, in no distress. HEENT: Normocephalic and atraumatic. NECK: Supple. LUNGS: Clear. CARDIOVASCULAR: S1, S2. No S3 or S4. ABDOMEN: Soft. Positive bowel sounds. EXTREMITIES: 1+ edema. SKIN: Warm and dry. LABORATORY DATA: Laboratory work was reviewed. CBC with a white count of 11, hemoglobin of 14, hematocrit 44, platelet count 237. Chemistries unremarkable except for creatinine 1.43 and GFR is 50. The troponin has been negative x3 at 0.03, 0.03, and 0.03 and then the 4th one at 0.02. CK-MB was normal. TSH was normal. Lipase of 30. UA was unremarkable. Toxicology positive for cannabis and opiates. Alcohol level was undetectable. EKG was reviewed. Chest x-ray was reviewed. Abdominal ultrasound was performed and it was limited secondary to body habitus. No evidence of gallstones, fatty infiltration of the liver and a small left renal cyst. ASSESSMENT AND PLAN: 1. Chest pain. Likely cardiac in nature. He tells me it is mostly right shoulder pain. He may have had some different type of chest pain yesterday, but currently the pain is describing to me seems noncardiac. The pain he had yesterday is different from what he is describing today and given his normal troponins and his unremarkable EKG and his recent heart catheterization and stenting to the right, this was suggest this is also noncardiac chest pain. 2. From the cardiac perspective, I would not do any further workup. He is stable. From the cardiac perspective, he can be discharged home at any point. 3. Thank you for letting us to participate in the care of your patient. We will sign off. Please call with any questions. Job ID: [id number]
[2018-10-07] MEDS: Carvedilol 6.25 MG TAB PO SCH (18:08)
[2018-10-07] MEDS ORDERED: Lisinopril 5 MG TAB PO SCH (21:00)
[2018-10-07] MEDS ORDERED: PROVENTIL INHALER 6.7 G (200 INHALATIONS) INH PRN (21:00)
[2018-10-07] MEDS ORDERED: Albuterol Sulfate 1.25 MG/3 ML NEB NEB PRN (21:00)
[2018-10-07] MEDS: Lisinopril 5 MG TAB PO SCH (21:01)
[2018-10-07] MEDS: Atorvastatin Calcium 40 MG TAB PO SCH (21:01)
[2018-10-07] MEDS: Senokot S 8.6-50 MG TAB PO SCH (21:02)
[2018-10-07] MEDS: Lithium Carbonate 150 MG CAP PO SCH (21:06)
[2018-10-07] MEDS ORDERED: Ketorolac Tromethamine 30 MG/ML VIAL IVP SCH (21:45)
[2018-10-08 04:45] LABS: #Eosinphils 0.3 thou/uL (0.0-0.7); #Lymphocytes 2.5 thou/uL (1.20-3.40); #Monocytes 0.7 thou/uL (0.11-0.59); #Neutrophils 8.5 thou/uL (1.40-6.50); %Basophils 0.3 % (0.0-1.0); %Eosinophils 2.4 % (0.0-10.0); %Lymphocytes 20.7 % (21.0-51.0); %Monocytes 5.6 % (0.0-10.0); %Neutrophils 71.1 % (42.0-75.0); Hemoglobin 13.8 g/dL (14.0-18.0); Mean Corpuscular HGB CONC 32.4 g/dL (32.0-36.0); Mean Corpuscular Hemoglobin 33.2 pg (27.0-31.0); Mean Platelet Volume 8.7 fL (7.4-10.4); Platelet Count 225 thou/uL (130-400); RBC Distribution Width 12.1 % (11.5-14.5); Red Blood Cell (RBC) Count 4.15 mill/uL (4.70-6.10); White Blood Cell (WBC) Count 11.9 thou/uL (4.8-10.8)
[2018-10-08 05:04] LABS: Anion Gap 11 mmol/L (10-20); BUN (Urea Nitrogen) 23 mg/dL (8.4-25.7); Calc. Creatinine Clearance 76 mL/min (70-130); Calcium 9.9 mg/dL (7.8-10.44); Carbon Dioxide 27 mmol/L (23-31); Chloride 105 mmol/L (98-107); Estimated GFR-MDRD 45; Glucose 94 mg/dL (80-115); Potassium 4.4 mmol/L (3.5-5.1); Sodium 139 mmol/L (136-145)
[2018-10-08 08:29] LABS: Lactic Acid 1.2 mmol/L (0.5-2.2)
[2018-10-08] MEDS: Carvedilol 6.25 MG TAB PO SCH ×2 (08:49→16:39)
[2018-10-08] MEDS: Clopidogrel Bisulfate 75 MG TAB PO SCH (08:49)
[2018-10-08] MEDS: Senokot S 8.6-50 MG TAB PO SCH ×2 (08:49→20:45)
[2018-10-08] MEDS: Lisinopril 5 MG TAB PO SCH ×2 (08:49→20:45)
[2018-10-08] MEDS: Aspirin Chewable 81 MG TAB PO SCH (08:49)
[2018-10-08] MEDS: Lithium Carbonate 150 MG CAP PO SCH ×2 (08:49→20:49)
[2018-10-08 09:12] LABS: ALT (SGPT) 18 U/L (8-55); AST (SGOT) 14 U/L (5-34); Alkaline Phosphatase 90 U/L (40-150); Bilirubin, Direct 0.2 mg/dL (0.1-0.3); Bilirubin, Total 0.6 mg/dL (0.2-1.2); CK (CPK) 71 U/L (30-200); Lipase 26 U/L (8-78); Protein, Total 6.7 g/dL (5.8-8.1)
[2018-10-08] MEDS ORDERED: Sodium Chloride 0.9% 250 ML IV SCH (10:45)
[2018-10-08] MEDS ORDERED: Lorazepam 0.5 MG TAB PO SCH (10:45)
[2018-10-08] MEDS: Sodium Chloride 0.9% 1,000 ML IV SCH ×2 (11:29→16:42)
--- NOTE | 2018-10-08 11:29 | CT ---
CT angiogram of chest and abdomen performed with intravenous contrast enhancement with 3-D reconstruc tions: HISTORY: Shortness of breath. Shoulder back and abdomen pain. Elevated d-dimer. COMPARISON: CT angiogram of chest performed 09/22/2018. FINDINGS: Once again some tiny pulmonary nodules are identified subcentimeter in size with a larger f airly circumscribed right lower lobe pulmonary nodule measuring approximately 1.7 cm in size. The peripheral portion of this is of increased attenuation with a decreased attenuation center which coul d be related to necrosis, I am not certain where the peripheral areas represent enhancement or faint calcification. The CT Hounsfield unit numbers of the internal component are not definite fat de nsity. If it could be established that this lesion contains fat and calcification it could be established as a hamartoma. A noncontrast CT may be helpful in this assessment. As previously discuss ed on the previous report PET scan may be indicated. No infiltrative process. No pleural effusions. No significant mediastinal or hilar lymphadenopathy. The thoracic aorta is normal in caliber without evidence for dissection. There are some coronary regine ry calcifications present. CT angiography of abdomen performed with intravenous contrast enhancement with 3-D reconstructions: T he liver shows fatty change. The spleen and pancreas regions are unremarkable increased attenuation the gallbladder lumen is of uncertain etiology it would be unlikely that this is related to the previ ous CT examination given the timeframe but some other type of contrast injection may explain this. It does not have the typical appearance of sludge or a calcified gallbladder. Right and left adrenal glands are normal in appearance hypodensity involving the left kidney is felix tible with a cyst. No significant periaortic or mesenteric adenopathy. Angiographic portion of the study shows a normal caliber aorta with atherosclerotic change. No dissec tion. No significant narrowing of the celiac or superior mesenteric arteries, there is an area of mild narrowing of the celiac artery. No significant stenosis of renal arteries with 2 renal arteries identified bilaterally. IMPRESSION: 1. No evidence of aortic aneurysm or dissection. 2. Fatty change of the liver. 3. 1.7 cm indeterminate right lower lobe pulmonary nodule with discussion as above.
[2018-10-08] MEDS: Acetaminophen 325 MG TAB PO PRN ×3 (11:34→22:10)
[2018-10-08] MEDS ORDERED: Iopamidol 370 76% 100 ML VIAL ONE (11:43)
--- NOTE | 2018-10-08 13:25 | PDOC.PN ---
- Subjective Encounter Start Date: 10/08/18 Encounter Start Time: 11:23 Subjective: Patient with shortness of breath, states he feels unwell overall -: Denies any further chest pain. No abdo pain, n/v. -: Continues to have "the shakes" though better compared to yesterday No fevers or chills. Denies any urinary symptoms. - Objective Resuscitation Status - Order Detail: 10/07/18 11:29 Resuscitation Status Routine Co-Sign Provider: Resuscitation Status: FULL: Full Resuscitation Vital Signs & Weight: Vital Signs (12 hours) Temp Pulse Resp BP Pulse Ox 10/08/18 10:47 98.6 F 90 16 166/102 H 97 10/08/18 10:37 101 H 20 94 L 10/08/18 08:49 83 10/08/18 07:50 94 L 10/08/18 07:45 98.2 F 83 20 137/71 90 L 10/08/18 06:35 90 L 10/08/18 06:34 90 16 92 L 10/08/18 03:56 95 10/08/18 03:53 97.9 F 78 20 153/76 H 95 Weight Weight 239 lb 9.6 oz I&O: 10/07/18 10/08/18 10/09/18 06:59 06:59 06:59 Intake Total 700 240 Output Total 550 400 Balance 150 -160 Result Diagrams: 10/08/18 04:18 10/08/18 04:18 Phys Exam - Physical Examination Constitutional: NAD HEENT: PERRLA, moist MMs, sclera anicteric Neck: supple, full ROM Respiratory: clear to auscultation bilateral Cardiovascular: RRR Gastrointestinal: soft, no distention obese Musculoskeletal: no edema Neurological: normal sensation, moves all 4 limbs Psychiatric: normal affect, A&O x 3 Skin: no rash Dx/Plan (1) Chest pain Code(s): R07.9 - CHEST PAIN, UNSPECIFIED Status: Acute (2) SOB (shortness of breath) Code(s): R06.02 - SHORTNESS OF BREATH Status: Acute (3) History of OR (myocardial infarction) Code(s): I25.2 - OLD MYOCARDIAL INFARCTION Status: Chronic (4) BRENDA (acute kidney injury) Code(s): N17.9 - ACUTE KIDNEY FAILURE, UNSPECIFIED Status: Acute - Plan cont current plan of care, DVT proph w/SCDs Patient seen by Dr. Jovel, cleared from cardiology perspective. -: No further investigations indicated. -: He had low sats 90% today, feeling generally unwell. -: D-Dimer elevated, CT Angiogram requested. -: Resume IVF, creatinine elevated slightly from yesterday. Viral Resp Panel by NAAT requested as well. Plan discussed with Dr. Martin who agrees.
--- NOTE | 2018-10-08 17:17 | CT ---
CT Brain WO Con: 10/08/2018 3:28 PM CLINICAL HISTORY: Left lower extremely weakness. COMPARISON: None. FINDINGS: Hemorrhage: None. Ventricular system: Mild prominence due to parenchymal volume loss. Cerebral parenchyma: Microvascular ischemic disease Midline shift: None. Mass: No mass effect. Calvarium: Normal. Visualized Paranasal sinuses: Clear. IMPRESSION: No acute intracranial abnormalities.
--- NOTE | 2018-10-08 18:17 | PDOC.EVN ---
Event Note - Event Note Event Note: Informed patient with weakness in left leg, witnessed to be dragging it. Neuro exam performed, no deficits. Power 5/5 in all limbs. Normal sensation. When walking patients left leg appears to buckle. Upon further questions patient states he has long standing back pain. No saddle numbness/tingling. No urinary or bowel incontinence. Also then states this has been going on for a few days. Denies any severe pain. CT Brain had been done and showed no IC abnormalities. Will continue to monitor. No indication for further spine imaging and pain tolerable and without neuro deficits. For further workup as outpatient. Sats 90% but improved when he takes a deep breath to 94%. Patient has COPD. Continue nebs. For CTA in am. Not tachy. No chest pain or sob. No cough/ hemoptysis. No lower leg swelling.
[2018-10-08] MEDS: Atorvastatin Calcium 40 MG TAB PO SCH (20:45)
--- NOTE | 2018-10-09 08:08 | ULT ---
ULTRASOUND WITH DOPPLER DUPLEX VENOUS LOWER EXTREMITY BILATERAL: CPT: 77364 ICD-10-PCS: B54D INDICATION: History of lower extremity pain. TECHNIQUE: Color flow Doppler, spectral waveform analysis of pulsed Doppler, and goodman-scale imaging with hugh delio and augmentation, were used to evaluate the bilateral common femoral, femoral, popliteal, commercial lease administrator ior tibial, and superficial femoral, veins; and the proximal portions of the profunda femoral and gre ater saphenous, veins. FINDINGS: There is appropriate compressibility and flow within the imaged deep vein system of each lower extrem ity without evidence of thrombus. IMPRESSION: No deep venous thrombosis. POS: [facility]
[2018-10-09 08:17] LABS: #Eosinphils 0.3 thou/uL (0.0-0.7); #Lymphocytes 1.8 thou/uL (1.20-3.40); #Monocytes 0.5 thou/uL (0.11-0.59); #Neutrophils 6.8 thou/uL (1.40-6.50); %Basophils 0.5 % (0.0-1.0); %Lymphocytes 18.8 % (21.0-51.0); %Monocytes 5.4 % (0.0-10.0); %Neutrophils 72.3 % (42.0-75.0); Hemoglobin 14.2 g/dL (14.0-18.0); Mean Corpuscular HGB CONC 32.4 g/dL (32.0-36.0); Mean Corpuscular Hemoglobin 32.7 pg (27.0-31.0); Mean Platelet Volume 8.5 fL (7.4-10.4); Platelet Count 221 thou/uL (130-400); RBC Distribution Width 12.2 % (11.5-14.5); Red Blood Cell (RBC) Count 4.34 mill/uL (4.70-6.10); White Blood Cell (WBC) Count 9.4 thou/uL (4.8-10.8)
[2018-10-09 08:40] LABS: Anion Gap 13 mmol/L (10-20); BUN (Urea Nitrogen) 19 mg/dL (8.4-25.7); Calc. Creatinine Clearance 85 mL/min (70-130); Calcium 10.2 mg/dL (7.8-10.44); Carbon Dioxide 24 mmol/L (23-31); Chloride 108 mmol/L (98-107); Estimated GFR-MDRD 52; Glucose 102 mg/dL (80-115); Potassium 4.5 mmol/L (3.5-5.1); Sodium 140 mmol/L (136-145)
[2018-10-09] MEDS: Carvedilol 6.25 MG TAB PO SCH ×2 (08:48→16:45)
[2018-10-09] MEDS: Lithium Carbonate 150 MG CAP PO SCH ×2 (08:48→21:41)
[2018-10-09] MEDS: Clopidogrel Bisulfate 75 MG TAB PO SCH (08:48)
[2018-10-09] MEDS: Aspirin Chewable 81 MG TAB PO SCH (08:48)
[2018-10-09] MEDS: Lisinopril 5 MG TAB PO SCH ×2 (08:48→21:43)
[2018-10-09] MEDS: Senokot S 8.6-50 MG TAB PO SCH ×2 (08:48→21:42)
[2018-10-09] MEDS ORDERED: Polyethylene Glycol 3350 17 GM Packet PO SCH (11:45)
[2018-10-09] MEDS ORDERED: ISOVUE-370 76%-LOCM 1 ML ONE (11:54)
--- NOTE | 2018-10-09 12:49 | CT ---
CTA chest with contrast: Multiple axial tomograms obtained through the chest following a pulmonary angiogram protocol with mul tiplanar reconstruction and 3-D postprocessing. INDICATIONS: Elevated d-dimer. Shortness of breath. COMPARISON: 10/08/2018 FINDINGS: Pulmonary arteries show adequate opacification. No evidence of pulmonary embolus identified. Thoracic aorta is unremarkable. No evidence of dissection. Nonspecific mediastinal and hilar lymph nodes. No evidence of infiltrate or effusion. Indeterminate nodule in the right lung base measuring 2.0 cm a s described on yesterday's chest CT. There are other scattered nodules seen in both lungs. A 7 mm nodule superior segment right lower lobe image 57. 4 mm nodule along the fissure mid right peripheral lung, image 79. 3 mm nodule left upper lobe. 3 mm nodule within the fissure left mid lung. Images through the upper abdomen appear unremarkable. Soft tissues of the thorax appear unremarkable. Osseous structures of the thorax appear unremarkable. IMPRESSION: 1. No evidence of pulmonary embolus 2. Indeterminate nodule in the posterior right lung base. See yesterday's CT report. There are other scattered pulmonary nodules as described above.
[2018-10-09] MEDS: Benzonatate 100 MG CAP PO SCH ×2 (12:53→21:41)
[2018-10-09] MEDS ORDERED: hydrALAZINE 20 MG/ML VIAL SLOW IVP PRN (15:07)
--- NOTE | 2018-10-09 18:00 | PDOC.PN ---
- Subjective Encounter Start Date: 10/09/18 Encounter Start Time: 17:58 Subjective: Patient states he feels fairly well without any new complaints. -: He continues with slight tremor, states today that this is a chronic issue. -: Denies any headaches, dizziness, chest pain or sob. No n/v. Tolerating PO intake. Denies any abdominal pain. Has had a semisoft stool. - Objective Resuscitation Status - Order Detail: 10/07/18 11:29 Resuscitation Status Routine Co-Sign Provider: Resuscitation Status: FULL: Full Resuscitation Vital Signs & Weight: Vital Signs (12 hours) Temp Pulse Pulse Pulse Resp BP BP 10/09/18 16:45 168/98 H 10/09/18 15:45 83 168/98 H 10/09/18 15:26 98.4 F 82 16 10/09/18 14:46 80 81 187/107 H 10/09/18 14:40 83 16 10/09/18 12:16 98.0 F 79 20 10/09/18 10:27 83 16 10/09/18 08:48 78 173/94 H 10/09/18 07:23 98.2 F 78 20 10/09/18 07:20 94 16 BP BP Pulse Ox Pulse Ox Pulse Ox 10/09/18 16:45 10/09/18 15:45 10/09/18 15:26 165/99 H 94 L 10/09/18 14:46 192/105 H 98 98 10/09/18 14:40 93 L 10/09/18 12:16 179/111 H 93 L 10/09/18 10:27 92 L 10/09/18 08:48 10/09/18 07:23 173/94 H 94 L 10/09/18 07:20 94 L Weight Weight 239 lb 9.6 oz I&O: 10/08/18 10/09/18 10/10/18 06:59 06:59 06:59 Intake Total 700 2857 Output Total 550 2900 825 Balance 150 43 825 Result Diagrams: 10/09/18 07:43 10/09/18 07:43 Phys Exam - Physical Examination Constitutional: NAD HEENT: PERRLA, oral pharynx no lesions Neck: supple, full ROM Respiratory: clear to auscultation bilateral Cardiovascular: RRR Gastrointestinal: soft, non-tender, no distention, positive bowel sounds Musculoskeletal: no edema Neurological: normal sensation, moves all 4 limbs Psychiatric: normal affect, A&O x 3 Deviation from normal: constant fine resting tremor Skin: no rash Dx/Plan (1) Chest pain Code(s): R07.9 - CHEST PAIN, UNSPECIFIED Status: Resolved (2) SOB (shortness of breath) Code(s): R06.02 - SHORTNESS OF BREATH Status: Resolved Plan: Elevated D-Dimer, CTA Chest negative. Patients breathing has improved. He states he feels he is back at baseline. (3) History of AR (myocardial infarction) Code(s): I25.2 - OLD MYOCARDIAL INFARCTION Status: Chronic (4) BRENDA (acute kidney injury) Code(s): N17.9 - ACUTE KIDNEY FAILURE, UNSPECIFIED Status: Resolved - Plan cont current plan of care Seen and examined by Dr. Reid, advised no further investigations. -: Did recommend checking [place] level to ensure no toxicity. -: Coreg increased to 12.5 mg PO BID. -: Per PT recommendations patient for rehab vs. SNU. -: [facility] consult for placement. * .
[2018-10-09] MEDS ORDERED: Mirtazapine 15 MG TAB PO SCH (21:00)
[2018-10-09] MEDS: Acetaminophen 325 MG TAB PO PRN (21:41)
[2018-10-09] MEDS: Atorvastatin Calcium 40 MG TAB PO SCH (21:42)
[2018-10-09] MEDS: guaiFENesin ER 600 MG TAB PO SCH (21:46)
[2018-10-10 04:30] VITALS: TEMP 97.9
[2018-10-10] MEDS: Carvedilol 6.25 MG TAB PO SCH (05:53)
[2018-10-10 06:44] LABS: Albumin 4.3 g/dL (3.4-4.8); Anion Gap 10 mmol/L (10-20); BUN (Urea Nitrogen) 19 mg/dL (8.4-25.7); BUN/Creatinine Ratio 14.18; Calc. Creatinine Clearance 90 mL/min (70-130); Calcium 10.2 mg/dL (7.8-10.44); Carbon Dioxide 25 mmol/L (23-31); Chloride 107 mmol/L (98-107); Estimated GFR-MDRD 54; Glucose 95 mg/dL (80-115); Magnesium 2.4 mg/dL (1.6-2.6); Phosphorus 3.1 mg/dL (2.3-4.7); Potassium 4.1 mmol/L (3.5-5.1); Sodium 138 mmol/L (136-145)
[2018-10-10] MEDS: Benzonatate 100 MG CAP PO SCH (08:54)
[2018-10-10] MEDS: Aspirin Chewable 81 MG TAB PO SCH (08:54)
[2018-10-10] MEDS: Lisinopril 5 MG TAB PO SCH (08:55)
[2018-10-10] MEDS: guaiFENesin ER 600 MG TAB PO SCH (08:55)
[2018-10-10] MEDS: Clopidogrel Bisulfate 75 MG TAB PO SCH (08:55)
[2018-10-10] MEDS: Lithium Carbonate 150 MG CAP PO SCH (08:58)
[2018-10-10] MEDS: Senokot S 8.6-50 MG TAB PO SCH (08:59)
[2018-10-10] MEDS ORDERED: PARoxetine 20 MG TAB PO SCH (09:00)
[2018-10-10 13:06] VITALS: BP 164/90
--- NOTE | 2018-10-10 13:38 | DIS ---
DATE OF ADMISSION: 10/07/2018 DATE OF DISCHARGE: 10/10/2018 DISCHARGE DIAGNOSES: 1. Coronary artery disease, chronic and stable. 2. Hypertension, improved. 3. Resting tremor, stable. 4. Constipation, stable. 5. Cannabis abuse. 6. Chronic kidney disease, stage 3. CONSULTATIONS: Dr. Jovel with Cardiology Service. PERTINENT LABORATORY DATA AND X-RAY FINDINGS: Creatinine ranged between 1.34 to 1.56. Estimated GFR ranged between 45 to 52. LFTs within normal limits. BNP 232. TSH 1.29. CBC showed a white blood cell count ranged between 9.4 to 11.9, hemoglobin ranged between 13.8 to 14.5. Urine drug screen dated 10/07/2018, positive for opiates and cannabinoids. [place] level 0.80. Respiratory virus panel dated 10/08/2018, negative. Abdominal ultrasound dated 10/07/2018 showed fatty infiltration of the liver. No acute process identified. Portable chest x-ray dated 10/07/2018 showed no acute cardiopulmonary process. CT of the brain without contrast dated 10/08/2018 showed no acute intracranial process. Bilateral lower extremity venous Doppler study dated 10/08/2018 showed no evidence for DVT. CT angiogram of the chest dated 10/09/2018 showed no evidence for pulmonary embolus. Indeterminate nodule in the posterior right lung base. Recommend repeat CT imaging in 6 months. HOSPITAL COURSE: The patient was placed in observation status on the telemetry unit after initially presenting with epigastric abdominal pain and a chest pain rule out. The patient with known history of coronary artery disease, status post recent ST-elevation myocardial infarction, status post stent placement. Serial troponins were evaluated showing stable trend with troponins ranging between 0.023 to 0.037. The patient was evaluated by the Cardiology Service due to recent coronary artery disease and ST-elevation myocardial infarction. However, no specific aggressive intervention or further workup was recommended. The patient continued on dual antiplatelet therapy and remained clinically stable. The patient was titrated on his antihypertensive regimen due to labile blood pressure readings. Overall, blood pressure trend had improved with increasing Coreg to 12.5 mg b.i.d. Overall, the patient remained clinically stable through the hospital course. I have examined the patient at the time of discharge and discussed followup instructions. The patient verbalized understanding and agreement ready for discharge on 10/10/2018. DISCHARGE MEDICATIONS: 1. Albuterol sulfate nebulized solution 1.25 mg nebulized q.4 hours p.r.n. 2. Albuterol sulfate HFA 2 puffs inhaled q.4 hours p.r.n. 3. [place] carbonate 300 mg p.o. b.i.d. 4. Mirtazapine 45 mg p.o. at bedtime. 5. Paxil 40 mg p.o. daily. 6. Spiriva HandiHaler 2.5 mcg inhaled daily. 7. Enteric-coated aspirin 81 mg p.o. daily. 8. Lipitor 40 mg p.o. at bedtime. 9. Coreg 12.5 mg p.o. b.i.d. 10. Plavix 75 mg p.o. daily. 11. Guaifenesin extended release 600 mg p.o. b.i.d. 12. Zestril 5 mg p.o. b.i.d. 13. Protonix 40 mg p.o. daily. FOLLOWUP: The patient may follow up with his primary care provider, Dr. Brown within 7 days of discharge. CONDITION ON DISCHARGE: Stable. ACTIVITY: Ad-yoel. DIET: Heart healthy. CODE STATUS: Full. DISPOSITION: To home, 10/10/2018 Job ID: [id number] [id number]
== END 2018-10-10 13:40 | disposition home or self-care (01) ==
LOC: ERS 23:28 → ERHOLD 10-07 00:51 → 2SW 10-07 12:16
PROVIDERS: ADMIT Family Medicine; ATTEND Family Medicine
DX: I25.10 Atherosclerotic heart disease of native coronary artery without angina pectoris (principal); I12.9 Hypertensive chronic kidney disease with stage 1 through stage 4 chronic kidney disease, or unspecified chronic kidney disease; N18.3 Chronic kidney disease, stage 3 (moderate); G25.2 Other specified forms of tremor; K59.00 Constipation, unspecified; F12.10 Cannabis abuse, uncomplicated; N17.9 Acute kidney failure, unspecified; J44.9 Chronic obstructive pulmonary disease, unspecified; I25.2 Old myocardial infarction; E78.5 Hyperlipidemia, unspecified; F31.9 Bipolar disorder, unspecified; Z85.118 Personal history of other malignant neoplasm of bronchus and lung; Z95.5 Presence of coronary angioplasty implant and graft; Z87.891 Personal history of nicotine dependence; Z79.82 Long term (current) use of aspirin; Z79.899 Other long term (current) drug therapy
CPT/HCPCS: 36415; 70450; 71046; 71275; 74175; 76700; 80048; 80053; 80069; 80076; 80178; 80306; 80307; 81001; 82550; 82553; 83605; 83690; 83735; 83880; 84443; 84484; 85025; 85379; 87633; 93005; 93010; 93970; 94640; 96361; 96374; 96375; G0378; J0360; J1885; J7620; Q9966; Q9967